=== PATIENT | male | born 2000 | race Hispanic/Latino ===

== ENCOUNTER 2019-05-13 08:26 | Emergency (ER) | payer BC ==
[2019-05-13] MEDS ORDERED: Ketorolac Tromethamine 30 MG/ML VIAL ONE (08:57)
--- NOTE | 2019-05-13 09:18 | RAD ---
EXAM: XR Lumbar Spine 2 Or 3 View PROVIDED CLINICAL HISTORY: Back pain COMPARISON: None FINDINGS: 5 nonrib-bearing lumbar-type vertebral bodies are present. Lumbar alignment appears normal. Vertebral body heights appear preserved. Pedicles appear intact. SI joints appear symmetric. IMPRESSION: Unremarkable lumbar spine radiographs.
== END 2019-05-13 09:55 | disposition home or self-care (01) ==
LOC: ERS 08:26
DX: M54.5 Low back pain (principal)
CPT/HCPCS: 72100; 96372; J1885